=== PATIENT | female | born 1970 | race Caucasian/White ===

== ENCOUNTER 2020-01-05 21:13 | Emergency (ER) | payer OTHER ==
[~2020-01-05] VITALS: Ht 154.9 cm; Wt 65.8 kg
[~2020-01-05 21:13] MED LIST: ACETAMINOPHEN PO; ACETAMINOPHEN325 M1; ANTABUSE250 M1 PO; ATENOLOL 100MG100 MG PO; ATENOLOL 25 MG25 M1 PO; ATENOLOL 50MG T50 M1 PO; CIPRO500 MG PO; CYMBALTA20 MG; CYMBALTA60 MG PO; DICLOFENAC SOD50 M1 PO; FLAGYL500 MG PO; HYDROCHLOROTHIA25 M2 PO; HYDROCODON-ACE1 EAC5 PO; LYRICA100 MG PO; LYRICA150 MG PO; LYRICA300 MG PO; NAPROSYN500 MG PO; NOHOMEMEDICATIONS; NORCO 5-325 TA1 EACH PO; NORVASC10 MG PO; OXYCODON-ACETA1 EACH PO; PENTAZOCINE PO; PROTONIX40 M2 PO; SAVELLA50 MG PO; SKELAXIN 800 M800 M1 PO; TOPAMAX 25 MG T25 M1 PO; VALIUM5 MG PO; VENTOLIN HFA 1818 GM INH; VITAMIN D2000 UNI1 PO; XANAX 0.25 MG0.25 MG PO; ZIPSOR25 MG PO; ZOFRAN4 MG PO
[2020-01-05 23:14] VITALS: BP 127/81
== END 2020-01-05 23:14 | disposition home or self-care (01) ==
LOC: ER 21:13
DX: S80.12XA Contusion of left lower leg, initial encounter (principal); F17.210 Nicotine dependence, cigarettes, uncomplicated; I10 Essential (primary) hypertension; M79.7 Fibromyalgia; Z79.899 Other long term (current) drug therapy; Z86.73 Personal history of transient ischemic attack (TIA), and cerebral infarction without residual deficits; Z98.890 Other specified postprocedural states; X50.1XXA Overexertion from prolonged static or awkward postures, initial encounter; Y93.89 Activity, other specified; Y92.89 Other specified places as the place of occurrence of the external cause; Y99.9 Unspecified external cause status

== ENCOUNTER 2021-04-10 00:52 | Emergency (ER) | payer OTHER ==
[~2021-04-10] VITALS: Ht 154.9 cm; Wt 65.8 kg
[2021-04-10] MEDS ORDERED: AIMOVIG AU140 MG/1 M SUBQ (01:23)
[2021-04-10] MEDS ORDERED: GUAIFEN-CODEINE10 ML PO ×2 (04:58→05:00)
[2021-04-10] MEDS ORDERED: ZPAK PO (04:58)
[2021-04-10] MEDS ORDERED: PROAIR HFA8.5 GM INH (04:58)
[2021-04-10 05:24] VITALS: BP 140/90
== END 2021-04-10 05:28 | disposition home or self-care (01) ==
LOC: ER 00:52
DX: J06.9 Acute upper respiratory infection, unspecified (principal); Z20.822 Contact with and (suspected) exposure to COVID-19; F17.210 Nicotine dependence, cigarettes, uncomplicated; I10 Essential (primary) hypertension; M79.7 Fibromyalgia; Z79.899 Other long term (current) drug therapy; Z86.73 Personal history of transient ischemic attack (TIA), and cerebral infarction without residual deficits; Z98.890 Other specified postprocedural states

== ENCOUNTER 2021-11-09 15:26 | Emergency (ER) | payer OTHER ==
[~2021-11-09] VITALS: Ht 154.9 cm; Wt 65.8 kg
[~2021-11-09 15:26] MED LIST changes: +AIMOVIG AU140 MG/1 M SUBQ; +GUAIFEN-CODEINE10 ML PO; +PROAIR HFA8.5 GM INH; +ZPAK PO
[2021-11-09 16:41] LABS: ABSOLUTE NEUTROPHILS 4.6 thou/uL (1.4-8.2); BASOPHILS 1.1 % (0.0-2.0); EOSINOPHILS 2.9 % (0.0-3.0); HEMATOCRIT 43.3 % (37.0-47.0); HEMOGLOBIN 14.4 gm/dL (12.0-15.0); LYMPHOCYTES 20.1 % (24.0-44.0); MCH 28.5 pg (26.0-34.0); MCHC 33.2 g/dL (28.0-37.0); MCV 86.1 fL (80.0-100.0); MONOCYTES 3.9 % (1.0-8.0); PLATELET COUNT 205 thou/uL (150-400); RBC 5.03 mil/uL (4.20-5.00); RDW 14.2 % (10.5-14.5); WBC 6.4 thou/uL (4.0-11.0)
[2021-11-09 16:49] LABS: CALCIUM 8.9 mg/dL (8.5-10.1); CREATININE 0.9 mg/dL (0.6-1.0); POTASSIUM 4.2 mmol/L (3.5-5.1)
[2021-11-09] MEDS ORDERED: COMPAZINE10 MG PO (17:47)
[2021-11-09 18:07] VITALS: BP 144/92
--- NOTE | 2021-11-10 10:56 | EKG ---
[address] [address] ELECTROCARDIOGRAM REPORT Name: DEANDRA HANSEN Room #: [facility]#: [id number] Admission: 11/09/21 Attend Phys: Discharge: 11/09/21 Date of : 74 Report #: [id number] [facility] ED Test Date: 2021-11-09 Test Time: 15:34:17 Pat Name: DEANDRA HANSEN Department: Room: Gender: F Cost Control Specialist: OLIVER : 1970 Requested By: Marvel Gay Order Number: [id number] MD: Olu Marti Measurements Intervals [place] Rate: 67 P: 54 AL: 124 QRS: 42 QRSD: 80 T: 33 QT: 404 QTc: 427 Interpretive Statements Sinus rhythm Compared to ECG 06/08/2014 13:48:10 Left ventricular hypertrophy no longer present Electronically Signed On 11-10-2021 10:56:32 ELECTROENCEPHALOGRAPHIC TECHNICIAN by Olu Marti [email or web address] <ELECTRONICALLY SIGNED> By: Olu Marti MD 11/10/21 1056 [id number] MD EMERITA Salas
== END 2021-11-09 18:08 | disposition home or self-care (01) ==
LOC: ER 15:26
PROVIDERS: Emergency Medicine
DX: R51.9 Headache, unspecified (principal); Z20.822 Contact with and (suspected) exposure to COVID-19; I10 Essential (primary) hypertension; M79.7 Fibromyalgia; F32.9 Major depressive disorder, single episode, unspecified; F17.210 Nicotine dependence, cigarettes, uncomplicated; F12.90 Cannabis use, unspecified, uncomplicated; Z98.890 Other specified postprocedural states; Z79.51 Long term (current) use of inhaled steroids; Z79.891 Long term (current) use of opiate analgesic; Z79.899 Other long term (current) drug therapy